=== PATIENT | male | born 1960 | race Caucasian/White ===

== ENCOUNTER 2021-02-11 01:04 | Emergency (ER) | payer BC ==
[~2021-02-11] VITALS: Ht 177.8 cm; Wt 87.7 kg
[2021-02-11 02:01] LABS: BASO # 0.03 (0.02-0.10); EOS # 0.03 (0.04-0.40); EOS % 0.4 % (0.0-4.0); HEMATOCRIT 39.6 % (42.0-52.0); HEMOGLOBIN 13.7 g/dL (13.5-18.0); LYMPH# 1.13 (1.50-4.00); MEAN CELL VOLUME 96 fl (78-100); MEAN CORPUSCULAR HEMOGLOBIN 33 pg (27-31); MEAN CORPUSCULAR HGB CONC 35 g/dL (33-37); MEAN PLATELET VOLUME 11.9 fl (7.4-10.4); MONO # 0.56 (0.20-0.80); NEU # 5.25 (1.40-6.50); PLATELET COUNT 203 K/mm3 (130-400); RED BLOOD COUNT 4.14 M/mm3 (4.20-5.60)
[2021-02-11] MEDS ORDERED: K-TAB20 MEQ PO (02:10)
[2021-02-11] MEDS ORDERED: LEVOTHYROXIN0.088 MG PO (02:11)
[2021-02-11] MEDS ORDERED: ZESTRIL40 M1 PO (02:11)
[2021-02-11] MEDS ORDERED: NORVASC 10MG10 MG PO (02:12)
[2021-02-11 02:15] LABS: URINE APPEARANCE CLEAR; URINE BILIRUBIN 1+ (NEGATIVE); URINE BLOOD 250 ery/uL (NEGATIVE); URINE COLOR YELLOW; URINE GLUCOSE NEGATIVE (NEGATIVE); URINE KETONE NEGATIVE (NEGATIVE); URINE LEUKOCYTE ESTERASE NEGATIVE (NEGATIVE); URINE NITRATE NEGATIVE (NEGATIVE); URINE PROTEIN(semi-quant) TRACE mg/dL (NEGATIVE); URINE UROBILINOGEN NORMAL (NORMAL); URINE WBC 0-1 /hpf (0-3)
[2021-02-11 02:22] LABS: ALBUMIN 3.9 g/dL (3.5-5.0); POTASSIUM 4.2 mmol/L (3.5-5.1)
[2021-02-11 02:23] LABS: CALCIUM 9.6 mg/dL (8.3-10.5)
[2021-02-11 02:24] LABS: TOTAL PROTEIN 6.7 g/dL (6.4-8.3)
[2021-02-11 05:39] VITALS: BP 132/85
== END 2021-02-11 05:39 | disposition home or self-care (01) ==
LOC: ED 01:04
PROVIDERS: Nurse Practitioner
DX: K43.9 Ventral hernia without obstruction or gangrene (principal); R79.89 Other specified abnormal findings of blood chemistry; I10 Essential (primary) hypertension; E07.9 Disorder of thyroid, unspecified; F17.210 Nicotine dependence, cigarettes, uncomplicated; Z79.890 Hormone replacement therapy; Z79.899 Other long term (current) drug therapy; Z20.822 Contact with and (suspected) exposure to COVID-19
CPT/HCPCS: J2270; J2405; J7030

== ENCOUNTER → 2023-03-10 | Outpatient (CLI) | payer BC ==
[~2023-03-10] MED LIST: K-TAB20 MEQ PO; LEVOTHYROXIN0.088 MG PO; NORVASC 10MG10 MG PO; ZESTRIL40 M1 PO
== END ==
LOC: RAD 07:43
DX: N20.0 Calculus of kidney (principal)
CPT/HCPCS: Q9967

== ENCOUNTER → 2023-05-11 | Outpatient (CLI) | payer BC | LOC: RAD 09:51 | DX: T18.5XXA Foreign body in anus and rectum, initial encounter (principal) ==